=== PATIENT | female | born 1985 | race Caucasian/White ===

== ENCOUNTER 2023-09-23 09:03 | Outpatient (CLI) | payer OTHER ==
[~2023-09-23 09:03] MED LIST: ORTHO TRI-7 DAYSX1
== END 2023-09-23 09:12 | disposition home or self-care (01) ==
LOC: RX STUDY 09:03
PROVIDERS: ATTEND Colon & Rectal Surgery
DX: N70.91 Salpingitis, unspecified (principal)

== ENCOUNTER 2024-09-07 08:48 | Inpatient (IN) | payer OTHER ==
[~2024-09-07] VITALS: Ht 165.1 cm; Wt 113.4 kg
[2024-09-07 10:19] LABS: PH,URINE 6.5 (5.0-8.0); URINE APPEARANCE Cloudy; URINE BILIRRUBIN Negative (NEGATIVE); URINE BLOOD Negative; URINE COLOR Yellow; URINE GLUCOSE Negative (NEGATIVE); URINE KETONE Negative (NEGATIVE); URINE LEUKOCYTE Trace; URINE NITRATE Negative; URINE PROTEIN Negative (NEGATIVE); URINE UROBILINOGEN 0.2 E.U./dl
[2024-09-07 10:22] LABS: HEMATOCRIT 35.7 % (36.0-45.00); HEMOGLOBIN 11.9 g/dL (12.0-15.00); MEAN CELL VOLUME 85.6 fL (80.00-100.00); MEAN CORPUSCULAR HEMOGLOBIN 28.5 pg (27.00-32.0); MEAN CORPUSCULAR HGB CONC 33.3 g/dl (32.0-36.0); PLATELET COUNT 366 K/uL (150-450); RED BLOOD COUNT 4.17 M/uL (4.00-6.00); RED CELL DISTRIBUTION WIDTH 13.7 % (11.5-14.5)
[2024-09-07 10:24] LABS: URINE BACTERIA 9007.3 uL (0.0-1933); URINE EPITHELIAL CELLS 149.1 uL (0.0-38.8); URINE RBC 85.5 uL (0.0-20.8); URINE WBC 54.3 uL (0.0-23.2)
[2024-09-07 10:37] LABS: ALBUMIN 2.8 gm/dL (3.4-5.0); BILIRUBIN TOTAL 0.24 mg/dL (0.3-1.2); CALCIUM 8.8 mg/dL (8.5-10.1); CREATININE SERUM 0.66 mg/dL (0.55-1.02); GFR 99.19; POTASSIUM 3.63 mEq/L (3.5-5.1); TOTAL PROTEIN 7.8 gm/dL (6.4-8.2)
[2024-09-07 10:38] LABS: INR 1.02; PARTIAL THROMBOPLASTIN TIME 30.6 SECONDS (22.0-34.0); PROTHROMBIN TIME 11.1 SECONDS (9.0-11.5)
[2024-09-07 10:45] LABS: URINE CAST 0.44 uL (0.0-1.40)
[2024-09-07] MEDS ORDERED: 0.9 % SODIUM CHLORIDE 1,000 ML IV SCH ×2 (17:00→23:00)
[2024-09-07] MEDS ORDERED: ACETAMINOPHEN 500 MG GEL..CAP PO PRN (17:15)
[2024-09-07] MEDS ORDERED: ONDANSETRON HCL 4 MG in 0.9 % SODIUM CHLORIDE 50 ML IV PRN (17:15)
[2024-09-07] MEDS ORDERED: PIPERACILLIN/TAZOBACTAM SODIUM 3.375 GM in 0.9 % SODIUM CHLORIDE 100 ML IV SCH (18:00)
[2024-09-07] MEDS ORDERED: KETOROLAC TROMETHAMINE 30 MG VIAL IV PRN (20:30)
[2024-09-07] MEDS ORDERED: BUPIVACAINE HCL 30 ML VIAL IJ ONE (22:15)
[2024-09-07] MEDS ORDERED: SUGAMMADEX SODIUM 200 MG/2 ML VIAL IV ONE (22:15)
[2024-09-07] MEDS ORDERED: MORPHINE SULFATE 4 MG/ML VIAL IV ONE (22:25)
[2024-09-08 00:56] VITALS: BP 110/68; O2SAT 96
[2024-09-08 07:42] LABS: HEMATOCRIT 31.2 % (36.0-45.00); HEMOGLOBIN 10.8 g/dL (12.0-15.00); MEAN CELL VOLUME 83.6 fL (80.00-100.00); MEAN CORPUSCULAR HGB CONC 34.7 g/dl (32.0-36.0); PLATELET COUNT 332 K/uL (150-450); RED BLOOD COUNT 3.73 M/uL (4.00-6.00); RED CELL DISTRIBUTION WIDTH 13.5 % (11.5-14.5)
[2024-09-08 07:49] LABS: CALCIUM 7.7 mg/dL (8.5-10.1); CREATININE SERUM 0.55 mg/dL (0.55-1.02); GFR 122.42; POTASSIUM 3.99 mEq/L (3.5-5.1)
[2024-09-08] MEDS ORDERED: FAMOTIDINE/PF 20 MG in 0.9 % SODIUM CHLORIDE 8 ML IV PUSH SCH (09:00)
[2024-09-08] MEDS ORDERED: AMOX1TAB5 PO (10:55)
== END 2024-09-08 13:45 | disposition home or self-care (01) | DRG 398 ==
LOC: ER 08:51 → SURG 17:38
PROVIDERS: Emergency Medicine; Surgery; ADMIT Internal Medicine; ATTEND Internal Medicine
PROC: 0WQF4ZZ Repair Abdominal Wall, Percutaneous Endoscopic Approach (ICD-10-PCS; 2024-09-07)
PROC: BW21Y0Z Computerized Tomography (CT Scan) of Abdomen and Pelvis using Other Contrast, Unenhanced and Enhanced (ICD-10-PCS; 2024-09-07)
PROC: 0DTJ4ZZ Resection of Appendix, Percutaneous Endoscopic Approach (ICD-10-PCS; principal; 2024-09-07 17:00)
DX: K35.80 Unspecified acute appendicitis (principal); K56.0 Paralytic ileus; R10.31 Right lower quadrant pain; K43.9 Ventral hernia without obstruction or gangrene

== ENCOUNTER 2024-12-05 09:10 | Outpatient (CLI) | payer OTHER ==
[~2024-12-05 09:10] MED LIST changes: +AMOX1TAB5 PO
== END 2024-12-05 09:13 | disposition home or self-care (01) ==
LOC: SONOGRAMA 09:10
PROVIDERS: ATTEND Obstetrics & Gynecology
DX: N97.0 Female infertility associated with anovulation (principal)